=== PATIENT | male | born 1965 | race African-American/Black ===

== ENCOUNTER 2019-05-09 07:55 | Observation (INO) | payer OTHER ==
[2019-05-09 08:25] LABS: #Basophils 0.2 thou/uL (0.0-0.2); #Eosinphils 0.1 thou/uL (0.0-0.7); #Lymphocytes 2.4 thou/uL (1.20-3.40); #Monocytes 0.7 thou/uL (0.11-0.59); %Basophils 1.6 % (0.0-1.0); %Eosinophils 0.9 % (0.0-10.0); %Lymphocytes 23.2 % (21.0-51.0); %Monocytes 6.6 % (0.0-10.0); %Neutrophils 67.7 % (42.0-75.0); Hemoglobin 14.7 g/dL (14.0-18.0); Mean Corpuscular HGB CONC 31.8 g/dL (32.0-36.0); Mean Corpuscular Hemoglobin 27.4 pg (27.0-31.0); Mean Corpuscular Volume 86.4 fL (78.0-98.0); Mean Platelet Volume 8.9 fL (7.4-10.4); Platelet Count 254 thou/uL (130-400); RBC Distribution Width 12.1 % (11.5-14.5); Red Blood Cell (RBC) Count 5.37 mill/uL (4.70-6.10); White Blood Cell (WBC) Count 10.4 thou/uL (4.8-10.8)
[2019-05-09] MEDS ORDERED: Aspirin Chewable 81 MG TAB ONE (08:33)
[2019-05-09] MEDS ORDERED: Nitroglycerin 2% Ointment 1 INCH/1 GM Packet ONE (08:33)
[2019-05-09 08:44] LABS: ALT (SGPT) 20 U/L (8-55); AST (SGOT) 22 U/L (5-34); Albumin 4.3 g/dL (3.5-5.0); Alkaline Phosphatase 60 U/L (40-110); Anion Gap 14 mmol/L (10-20); BUN (Urea Nitrogen) 24 mg/dL (8.4-25.7); Bilirubin, Total 1.3 mg/dL (0.2-1.2); CK (CPK) 184 U/L (30-200); Calc. Creatinine Clearance 0 mL/min (70-130); Calcium 9.8 mg/dL (7.8-10.44); Carbon Dioxide 30 mmol/L (22-29); Chloride 102 mmol/L (98-107); Estimated GFR-MDRD 46; Globulin 3.6 g/dL (2.4-3.5); Glucose 144 mg/dL (70-105); Lipase 71 U/L (8-78); Potassium 4.8 mmol/L (3.5-5.1); Protein, Total 7.9 g/dL (6.0-8.3); Sodium 141 mmol/L (136-145)
--- NOTE | 2019-05-09 08:51 | RAD ---
Portable frontal chest radiograph: 05/09/2019 COMPARISON: 05/07/2019 HISTORY: Intermittent chest pain FINDINGS: No pneumothorax or pleural fluid. No focal consolidation or alveolar edema. Heart and media stinal contours are stable. IMPRESSION: No acute findings.
[2019-05-09 09:05] LABS: CKMB 5.1 ng/mL (0-6.6)
[2019-05-09 12:05] VITALS: BMI 31.5
[2019-05-09] MEDS ORDERED: Ondansetron ODT 4 MG TAB SL PRN (12:07)
[2019-05-09] MEDS ORDERED: Ondansetron PF 4 MG/2 ML Vial IVP PRN (12:07)
[2019-05-09 12:15] LABS: Troponin I 0.028 ng/mL (< 0.028)
[2019-05-09] MEDS ORDERED: Nitroglycerin 0.4 MG TAB (25 Tab Bottle) PO PRN (13:17)
[2019-05-09] MEDS ORDERED: Dextrose 5% in Water 1,000 ML IV PRN (13:18)
[2019-05-09] MEDS ORDERED: HumaLOG 300 UNITS/3 ML VIAL SC PRN (13:18)
[2019-05-09] MEDS ORDERED: Dextrose 50% Abboject 50 ML SYRINGE SLOW IVP PRN (13:18)
[2019-05-09] MEDS ORDERED: Lidocaine 2% Viscous Solution 20 ML, Aluminum & Magnesium Hydroxide 30 ML, Donnatal Eli... SSW SCH (14:00)
[2019-05-09] MEDS ORDERED: Sodium Chloride 0.9% (PF) 10 ML VIAL FS PRN (14:02)
[2019-05-09 14:21] LABS: Hemoglobin A1c 8.9 % (4.0-6.0)
[2019-05-09 14:41] LABS: Troponin I 0.027 ng/mL (< 0.028)
--- NOTE | 2019-05-09 16:18 | HP ---
CHIEF COMPLAINT: Chest pain and shortness of breath. HISTORY OF PRESENT ILLNESS: The patient is a 53-year-old man with a history of hypertension and diabetes, currently has not been taking his medications for the past week, comes into the hospital from longterm with complaints of chest pain and shortness of breath. The patient stated that his chest pain started about 2 or 3 days ago. He described it as a cramp like sensation. He also stated that at times he passed out once. He also stated that he was dizzy. He also complained of shortness of breath on rest, not on ambulation. He denies any orthopnea or PND. The patient also stated that when he had this chest pain, he was nauseated. PAST MEDICAL HISTORY: History of hypertension, diabetes. SOCIAL HISTORY: He is a one pack a day smoker. Denies any alcohol use. Denies any drug use. He is a former drug user, abused cocaine and marijuana. PAST SURGICAL HISTORY: He has an amputation of the right small toe. REVIEW OF SYSTEMS: All negative except for the ones mentioned above in the HPI. MEDICATIONS: He is on; 1. Lantus 30 units daily. 2. Lisinopril, actually that was changed according to him to amlodipine. 3. Tylenol No. 3. FAMILY HISTORY: Mother has diabetes and heart disease. LABORATORY RESULTS: WBCs of 10.4, hemoglobin of 14.7, hematocrit of 46.4. Chemistry; sodium of 141, potassium of 4.8, BUN of 24, creatinine 1.88. Total bilirubin was 1.3. His initial troponin was . He had a chest x-ray, which did not show any acute abnormalities. He also had a CT head and a CT cervical spine. The CT head did not show any acute abnormalities. It was normal. He also had a CT cervical spine, which indicated no acute bony abnormalities. Minimal cervical spondyloarthropathy. He also had a pelvic x-ray, which indicated no acute abnormalities. PHYSICAL EXAMINATION: VITAL SIGNS: Temperature 97.6, pulse 78, respirations 16, oxygen saturation 98% on room air, and blood pressure 141/92. GENERAL: He is awake, alert, and oriented x3. Does not appear in distress. HEENT: Normocephalic and atraumatic. No lymphadenopathy noted. Pupils are equally reactive to light. CV: S1 and S2 present. No murmurs, rubs, or gallops. LUNGS: Clear to auscultation. No rhonchi or wheezes noted. ABDOMEN: Soft. Pain upon palpation to epigastric and right upper quadrant. Bowel sounds are present x2. EXTREMITIES: No edema. Pedal pulses are present x2. NEUROVASCULAR: No focal deficits noted. SKIN: No cuts, lesions, or bruises noted. ED COURSE: The patient's blood pressure was elevated in the 160s systolic to 100 diastolic. ASSESSMENT AND PLAN: The patient is a 53-year-old male, who presents to the hospital with chest pain. 1. Atypical chest pain. The patient does have significant pain upon palpation of his epigastric area. We will give him a GI cocktail also. We will put him on Protonix. His EKG is normal. We will go ahead and do a stress test on him, given his risk factors. We will check a lipid panel in the morning. We will check a hemoglobin A1c. 2. Diabetes. We will check the hemoglobin A1c. We will continue his Lantus. 3. Hypertension, uncontrolled. We will continue his amlodipine. 4. Chronic kidney disease, stage 3. We will continue to monitor. 5. Mildly elevated troponins in the indeterminate range. Again, we will go ahead and order a stress test. 6. Deep venous thrombosis prophylaxis. We will put the patient on subcu Lovenox. Job ID: [id number]
[2019-05-09] MEDS: Pantoprazole 40 MG VIAL IVP SCH (20:35)
[2019-05-10 05:45] LABS: Cardiac Risk 3.3 (Less than 4.5)
[2019-05-10] MEDS ORDERED: FLU VACC QS2019-20(6MOS UP)/PF 60 MCG/0.5 ML SYRINGE IM ONE (09:00)
[2019-05-10] MEDS ORDERED: Lisinopril 10 MG TAB PO SCH (09:00)
[2019-05-10] MEDS ORDERED: Enoxaparin Sodium 40 MG/0.4 ML SYRINGE SC SCH (09:00)
[2019-05-10] MEDS ORDERED: Insulin Glargine 30 UNITS in Pre-Filled Syringe 1 EACH SC SCH (09:00)
[2019-05-10] MEDS ORDERED: Non-Formulary Item 1 EACH (Insulin Glargine,Hum.Rec.Anlog [Lantus Solostar] 30 UNIT) SC SCH (09:00)
[2019-05-10] MEDS ORDERED: ADENOSINE 60 MG/20 ML VIAL ONE (09:52)
[2019-05-10] MEDS: Pantoprazole 40 MG VIAL IVP SCH (11:46)
--- NOTE | 2019-05-10 12:33 | NM ---
EXAM: NM Cardiac Stress W EF WF PROVIDED CLINICAL HISTORY: Chest pain COMPARISON: None RADIOPHARMACEUTICAL: 27 millicuries technetium 99m labeled sestamibi IV stress 10 point millicuries technetium 99m labeled sestamibi IV rest FINDINGS: There is normal, homogeneous distribution of radiotracer throughout the left ventricular myocardium. Gated data demonstrate normal myocardial wall motion and thickening with calculated LVEF 44%. Calculated TID is 0.97. IMPRESSION: 1. No scintigraphic evidence for ischemia. 2. Calculated LVEF 44%.
[2019-05-10 15:27] VITALS: BP 156/76; TEMP 98.4
--- NOTE | 2019-05-10 22:07 | DIS ---
DATE OF ADMISSION: 05/09/2019 DATE OF DISCHARGE: 05/10/2019 DISCHARGE DIAGNOSES: 1. Chest pain. 2. Hypertension. 3. Diabetes. HOSPITAL COURSE: The patient is a 53-year-old prisoner who initially presented to the hospital with chest pain, which appeared to be more atypical in nature. He was put on PPI and was given a GI cocktail. The patient stated his symptoms improved. However, given his history, he underwent a stress test, which indicated an EF of 44%. However, the stress test was normal. At this time given his history of drug abuse, we go ahead and order an echocardiogram. His TID score was 0.97. The echocardiogram indicated an EF of 60% to 65%, normal ventricular size, has some trivial pericardial effusion, however, everything else appeared to be normal. At this time, the patient will be discharged home. He will follow up with his primary care. He will be put on lisinopril 10 mg daily, Protonix 40 mg twice a day, Tylenol as needed, and also his Lantus. The patient states that he has been off his medications for a week since he ran out of them. I have advised him to restart back on his medications. His hemoglobin A1c was 8.9 and his creatinine has been 1.88. PHYSICAL EXAMINATION: VITAL SIGNS: Temperature 98.4, pulse 94, respirations 18, 100% on room air, blood pressure 156/76. GENERAL: He is awake, alert, and oriented x3. Does not appear in any distress. CV: S1 and S2 present. No murmurs, rubs, or gallops. ABDOMEN: Soft and nontender. Bowel sounds present x2. Job ID: [id number]
--- NOTE | 2019-05-14 08:50 | STRESS ---
Acquisition Time: 2019-05-10 09:54:38 Total Exercise Time: 00:04:00 Test Indications: CHEST PAIN Medications: Protocol: ADENOSINE Max HR: 098 BPM 58% of Pred: 168 BPM Max BP: 148/090 mmHG Max Work Load: 1.0 METS RESTING ECG: NORMAL SINUS RHYTHM AT 70 BPM SYMPTOMS: NONE APPROPRIATE BP RESPONSE FOR ADENOSINE ECTOPY: RARE PVCS ECG STRESS: NO SIGNIFICANT CHANGES INTERPRETATION: NEGATIVE/AWAIT NUCLEAR IMAGES FOR DEFINITIVE RESULTS Confirmed by CORAL KELLEY ([id number]), desk editor BIJAN JURADO ([id number]) on 05/14/2019 8:49:56 AM Referred By: Nabil PECK Confirmed By:CORAL KELLEY
== END 2019-05-10 18:04 ==
LOC: ERS 07:55 → 2SW 11:27
PROVIDERS: ADMIT Internal Medicine; ATTEND Internal Medicine
DX: R07.89 Other chest pain (principal); I12.9 Hypertensive chronic kidney disease with stage 1 through stage 4 chronic kidney disease, or unspecified chronic kidney disease; E11.22 Type 2 diabetes mellitus with diabetic chronic kidney disease; N18.3 Chronic kidney disease, stage 3 (moderate); F17.210 Nicotine dependence, cigarettes, uncomplicated; F12.11 Cannabis abuse, in remission; F14.11 Cocaine abuse, in remission; Z79.4 Long term (current) use of insulin; Z79.899 Other long term (current) drug therapy; Z88.5 Allergy status to narcotic agent
CPT/HCPCS: 36415; 36416; 71045; 78452; 80053; 80061; 82550; 82553; 83036; 83690; 84484; 85025; 90471; 90686; 93005; 93017; 93306; 94760; 96372; 96374; 96376; A9500; C9113; G0008; G0378; J0153; J1650; J1815